=== PATIENT | male | born 1975 | race Caucasian/White ===

== ENCOUNTER 2022-09-11 12:03 | Emergency (ER) | payer OTHER ==
[~2022-09-11] VITALS: Ht 177.8 cm; Wt 109.0 kg
[2022-09-11] MEDS ORDERED: ACETAMINOPHEN 500 MG TAB PO ONE (15:10)
[2022-09-11 16:06] LABS: BASO # 0.1 10^3/uL (0.0-0.2); BASO % 0.7 % (0.0-1.0); EOS # 0.3 10^3/uL (0.0-0.5); EOS % 2.7 % (0.0-3.0); HEMATOCRIT 44.9 % (42.0-52.0); HEMOGLOBIN 15.6 g/dl (13.5-17.5); LYMPH # 2.1 10^3/uL (1.5-5.0); LYMPH % 16.6 % (24.0-44.0); MEAN CORPUSCULAR HGB CONC 34.7 g/dl (32.0-36.5); MEAN CORPUSCULAR VOLUME 89.3 fl (80.0-96.0); MONO # 1.3 10^3/uL (0.0-0.8); MONO % 10.6 % (2.0-8.0); NEUTROPHILS # 8.6 10^3/uL (1.5-8.5); NEUTROPHILS % 68.8 % (36.0-66.0); PLATELET COUNT, AUTOMATED 230 10^3/uL (150-450); RED BLOOD COUNT 5.03 10^6/uL (4.30-6.10); WHITE BLOOD COUNT 12.5 10^3/uL (4.0-10.0)
[2022-09-11 16:19] LABS: ERYTHROCYTE SEDIMENTATION RATE 39 mm/hr (0-15)
[2022-09-11] MEDS ORDERED: KETOROLAC 30 MG/ML 1ML VIAL IV ONE (16:35)
[2022-09-11] MEDS ORDERED: LIDOCAINE 1% MDV 20ML VIAL SC ONE (16:35)
[2022-09-11] MEDS ORDERED: DALBAVANCIN 1,500 MG in D5W 250 ML IV ONE (16:35)
[2022-09-11 18:30] VITALS: BP 141/78; TEMP 98; O2SAT 97
== END 2022-09-11 18:30 | disposition home or self-care (01) ==
LOC: M ED 12:03 → EEVIPCON 12:03 → M ED 18:30
DX: L02.413 Cutaneous abscess of right upper limb (principal)
CPT/HCPCS: 10060; 76882; 80047; 85025; 85652; 86140; 87070; 87077; 87186; 96365; 96375; 99283; J0875; J1885